=== PATIENT | female | born 1980 | race Caucasian/White ===

== ENCOUNTER 2016-09-10 11:55 | Emergency (ER) | payer BC ==
[~2016-09-10] VITALS: Ht 167.6 cm; Wt 127.1 kg
[2016-09-10] MEDS ORDERED: SODIUM CHLORIDE FLUSH 10 ML SYR IV PRN (12:20)
[2016-09-10] MEDS ORDERED: SODIUM CHLORIDE FLUSH 3 ML SYR IV PRN (12:20)
[2016-09-10 12:52] LABS: BASOPHILS % (AUTO) 1 % (0-2); EOSINOPHILS # (AUTO) 0.3 10^3uL; EOSINOPHILS % (AUTO) 2 % (0-4); LYMPHOCYTES # (AUTO) 3.5 X10^3; MEAN CORPUSCULAR VOLUME 89 FL (80-100); MEAN PLATELET VOLUME 9.7 FL (6.0-9.5); MONOCYTES # (AUTO) 0.8 X10^3; MONOCYTES % (AUTO) 5 % (3-11); NEUTROPHILS # (AUTO) 10.2 X10^3; NEUTROPHILS % (AUTO) 68 % (51-67); PLATELET COUNT 387 10^3uL (150-450); WHITE BLOOD COUNT 14.95 10^3uL (4.0-11.0)
[2016-09-10 12:53] LABS: MEAN CORPUSCULAR HEMOGLOBIN 31.8 PG (26.0-34.0); MEAN CORPUSCULAR HGB CONC 35.6 g/dL (31.0-37.0)
[2016-09-10] MEDS: SODIUM CHLORIDE FLUSH 10 ML SYR IV PRN ×2 (12:53→14:23)
[2016-09-10 12:54] LABS: BILIRUBIN,URINE Negative (Negative); CLARITY,URINE Clear; COLOR,URINE Yellow; GLUCOSE, URINE (UA) Negative (Negative); LEUKOCYTE ESTERASE ,URINE Negative (Negative); PH,URINE 5.5 (5.0 - 8.0); UROBILINOGEN,URINE 0.2 mg/dL (0.2-1.0)
[2016-09-10 12:59] LABS: ALBUMIN 4.7 g/dL (3.4-5.0); ALKALINE PHOSPHATASE 77 U/L (38-126); ANION GAP 16.4 MEQ/L (3-15); BUN/CREATININE RATIO 16 (10-20); CALCULATED IONIZED CALCIUM 3.8 mg/dL (3.8-4.6); CREATINE KINASE 91 U/L (30-135); MAGNESIUM* 1.9 mg/dL (1.6-2.3); TOTAL PROTEIN 8.5 g/dL (6.4-8.5)
[2016-09-10 13:02] LABS: URINE CENTRIFUGED VOLUME 12 mL
[2016-09-10] MEDS ORDERED: KETOROLAC 30 MG/ML (TORADOL) 1 ML VIAL IV ONE (14:15)
[2016-09-10] MEDS ORDERED: LORazepam 2 MG/ML (ATIVAN) 1 ML VIAL IV ONE (14:15)
[2016-09-10 14:56] VITALS: BP 96/52
== END 2016-09-10 14:50 | disposition home or self-care (01) ==
LOC: ED 11:57
DX: R42 Dizziness and giddiness (principal); R53.1 Weakness
CPT/HCPCS: 36415; 71010; 80053; 81003; 81015; 82550; 82553; 83735; 84443; 84484; 85025; 85610; 85730; 93005; 96361; 96374; 96375; 99285; J1885; J2060; J7030; 93010; 99284

== ENCOUNTER → 2016-09-10 | Outpatient (CLI) | payer BC ==
[2016-09-10 11:45] VITALS: BP 138/90
== END ==
LOC: MHUC 11:05
PROVIDERS: ATTEND Nurse Practitioner
DX: R51 Headache (principal); R41.0 Disorientation, unspecified

== ENCOUNTER → 2016-10-04 | Outpatient (CLI) | payer BC ==
[2016-10-04 12:46] VITALS: BP 130/79
== END ==
LOC: MHUC 12:19
PROVIDERS: ATTEND Physician Assistant
DX: J02.9 Acute pharyngitis, unspecified (principal)
CPT/HCPCS: 87880; 99213